=== PATIENT | male | born 1970 | race Caucasian/White ===

== ENCOUNTER 2020-12-29 12:02 | Emergency (ER) | payer OTHER ==
[~2020-12-29] VITALS: Ht 180.3 cm; Wt 79.4 kg
[2020-12-29] MEDS ORDERED: ALLOPURINOL 30300 M1 PO (12:23)
[2020-12-29] MEDS ORDERED: ZPAK PO (12:44)
[2020-12-29] MEDS ORDERED: PROMETH-CODEIN 65 ML PO (12:44)
[2020-12-29] MEDS ORDERED: ZOFRAN ODT4 MG DISSOLVE (12:44)
[2020-12-29] MEDS ORDERED: DEXAMETHASONE 44 M1 PO (12:44)
[2020-12-29 12:59] VITALS: BP 116/76
== END 2020-12-29 12:59 | disposition home or self-care (01) ==
LOC: M.ERS 12:02
DX: U07.1 COVID-19 (principal); Z79.899 Other long term (current) drug therapy; Z88.0 Allergy status to penicillin